=== PATIENT | female | born 1965 | race Caucasian/White ===

== ENCOUNTER 2019-02-14 01:13 | Emergency (ER) | payer BC ==
[2019-02-14 01:27] VITALS: BP 149/93; PULSE 84; RESP 18; TEMP 97.4
[2019-02-14] MEDS ORDERED: Acetaminophen-Codeine 300-30mg TAB PO STA (01:38)
[2019-02-14] MEDS ORDERED: AMOXIC-POT CLAV 875-125MG 1 EACH TAB PO STA (01:38)
[2019-02-14] MEDS ORDERED: FLUTICASONE 50MCG/SPRAY NASAL 16GM EA NOSTRIL STA (01:38)
[2019-02-14] MEDS ORDERED: ACET/COD 300 MG/30 MG STARTER PACK 6 TAB BTL PO STA (01:38)
[2019-02-14] MEDS ORDERED: AMOXIC-POT CLAV 875MG STARTER 2 EACH TABLET PO STA (01:38)
--- NOTE | 2019-02-14 01:41 | ED ---
General Adult HPI - General Chief complaint: ENT Stated complaint: Ear ache Time Seen by Provider: 02/14/19 01:30 EDT Source: patient, RN notes reviewed, old records reviewed Mode of arrival: ambulatory Limitations: no limitations - History of Present Illness Initial comments: 53-year-old female patient with no pertinent past medical history presents to [facility] chief complaint of 3 days of left ear pain. Patient also reports a mild cough. Reports she has felt warm at home, denies any known fevers. Denies abdominal pain chest pain or shortness of breath. Systemic: Pt denies fatigue, fever/chills, rash. Pt denies weakness, night sweats, weight loss. Neuro: Pt denies headache, visual disturbances, syncope or pre-syncope. HEENT: Pt denies ocular discharge or irritation, rhinorrhea, pharyngitis or notable lymphadenopathy. Cardiopulmonary: Pt denies chest pain, SOB, heart palpitations, dyspnea on exertion. Abdominal/GI: Pt denies abdominal pain, n/v/d. : Pt denies dysuria, burning w/ urination, frequency/urgency. Denies new onset urinary or bowel incontinence. MSK: Pt denies myalgia, loss of strength or function in extremities. Neuro: Pt denies new onset weakness, paresthesias. - Related Data Previous Rx's Medication Instructions Recorded Amoxicillin/Potassium Clav 1 each PO Q12HR #20 tab 02/14/19 [Augmentin 875-125 Tablet] Allergies Allergy/AdvReac Type Severity Reaction Status Date / Time levofloxacin [From Levaquin] Allergy Rash/Hives Verified 02/14/19 01:21 EDT Review of Systems ROS Statement: Those systems with pertinent positive or pertinent negative responses have been documented in the HPI. ROS Other: All systems not noted in ROS Statement are negative. Past Medical History Past Medical History: Thyroid Disorder History of Any Multi-Drug Resistant Organisms: None Reported Past Surgical History: Appendectomy, Back Surgery, Orthopedic Surgery Additional Past Surgical History / Comment(s): bilateral knees thumb Past Psychological History: Anxiety Smoking Status: Current every day smoker Past Alcohol Use History: None Reported Past Drug Use History: None Reported General Exam - General Exam Comments Initial Comments: Constitutional: NAD, AOX3, Pt has pleasant affect. HEENT: NC/AT, trachea midline, neck supple, no lymphadenopathy. Posterior pharyn x non erythematous, without exudates. External ears appear normal, without discharge. Right TM pale gaines, no bulging erythema no perforation. Left TM erythematous, bulging with effusion. No perforation. Mucous membranes moist. Eyes PERRLA, EOM intact. There is no scleral icterus. No pallor noted. Cardiopulmonary: RRR, no murmurs, rubs or gallops, no JVD noted. Lungs CTAB in anterior and posterior thurston. No peripheral edema. Abdominal exam: Abdomen soft and non-distended. Abdomen non-tender to palpation in all 4 quadrants. Bowel sounds active in LLQ. No hepatosplenomegaly. No ecchymosis Neuro: CN II-XII grossly intact. No nuchal rigidity. No raccon eyes, no stover sign, no hemotympanum. No cervical spinal tenderness. MSK: No posterior calf tenderness bilaterally, homans sign negative bilaterally. Posterior tibialis and radial pulse +2 bilaterally. Sensation intact in upper and lower extremities. Full active ROM in upper and lower extremities, 5/5 stregnth. Limitations: no limitations Course Vital Signs 02/14/19 01:18 EDT Temperature 97.4 F L Pulse Rate 84 Respiratory 18 Rate Blood Pressure 149/93 O2 Sat by Pulse 100 Oximetry Medical Decision Making - Medical Decision Making 53-year-old female patient presents in ED with chief complaint of left otalgia. Sinus congestion, cough. Patient vital signs are stable, afebrile. Physical symptoms with left otitis media with effusion. Patient declined chest x-ray. Patient was discharged with Flonase, Augmentin. Will follow up with primary care" and will return to ER if condition worsens. Case discussed with Dr. Villalba. Disposition Clinical Impression: Otitis media Disposition: HOME SELF-CARE Condition: Stable Instructions (If sedation given, give patient instructions): Ear Infection (ED) Additional Instructions: Patient to adhere to previously discussed treatment plan and will take medication(s) as directed. Patient to follow up with PCP in 1-2 days. Patient to return to ED if symptoms do not improve. Take medication as directed. Return to ER if condition worsens. Prescriptions: Amoxicillin/Potassium Clav [Augmentin 875-125 Tablet] 1 each PO Q12HR #20 tab Is patient prescribed a controlled substance at d/c from ED?: No Referrals: Melisa Reyes DO [Primary Care Provider] - 1-2 days
== END 2019-02-14 01:58 | disposition home or self-care (01) ==
LOC: EC 01:13
DX: H66.92 Otitis media, unspecified, left ear (principal); R05 Cough; R09.81 Nasal congestion; F17.200 Nicotine dependence, unspecified, uncomplicated; Z88.1 Allergy status to other antibiotic agents; Z53.20 Procedure and treatment not carried out because of patient's decision for unspecified reasons
CPT/HCPCS: 99283

== ENCOUNTER 2019-02-15 21:11 | Emergency (ER) | payer BC ==
[2019-02-15 21:18] VITALS: BP 136/80; PULSE 82; RESP 20; TEMP 97.8
[2019-02-15] MEDS ORDERED: AMOXIC-POT CLAV 875MG STARTER 2 EACH TABLET PO STA (21:55)
[2019-02-15] MEDS ORDERED: KETOROLAC 30 MG/ML 1 ML VIAL IM STA (21:55)
[2019-02-15] MEDS ORDERED: ACET/COD 300 MG/30 MG STARTER PACK 6 TAB BTL PO STA (21:55)
[2019-02-15] MEDS ORDERED: MECLIZINE 12.5 MG TAB PO STA (21:55)
--- NOTE | 2019-02-15 21:57 | ED ---
General Adult HPI - General Chief complaint: ENT Stated complaint: Blood coming out of ear Time Seen by Provider: 02/15/19 21:23 Source: patient Mode of arrival: ambulatory Limitations: no limitations - History of Present Illness Initial comments: 53-year-old female patient presents to the emergency department today for evaluation of left ear pain. Patient was seen and evaluated here 2 days ago and diagnosed with urinary infection. Patient was unable to obtain her antibiotics due to transportation issues. Today she is reporting increased ear pain and bloody purulent drainage. She denies any fever or chills. Denies any difficulty swallowing. Patient denies history of ear infections as an adult. States she has been taking Tylenol codeine for pain and hasn't been helping much. Patient denies any recent rash, shortness breath, chest pain, abdominal pain, nausea, vomiting, diarrhea, constipation, back pain, numbness, tingling, dizziness, weakness, hematuria, dysuria, urinary urgency, urinary frequency, headache, visual changes, or any other complaints. - Related Data Previous Rx's Medication Instructions Recorded Amoxicillin/Potassium Clav 1 each PO Q12HR #20 tab 02/14/19 [Augmentin 875-125 Tablet] Ibuprofen [Motrin] 600 mg PO Q8HR PRN #30 tab 02/15/19 Meclizine HCl 25 mg PO BID #14 tablet 02/15/19 Allergies Allergy/AdvReac Type Severity Reaction Status Date / Time levofloxacin [From Levaquin] Allergy Rash/Hives Verified 02/15/19 21:18 Review of Systems ROS Statement: Those systems with pertinent positive or pertinent negative responses have been documented in the HPI. ROS Other: All systems not noted in ROS Statement are negative. Past Medical History Past Medical History: Thyroid Disorder History of Any Multi-Drug Resistant Organisms: None Reported Past Surgical History: Appendectomy, Back Surgery, Orthopedic Surgery Additional Past Surgical History / Comment(s): bilateral knees thumb Past Psychological History: Anxiety Smoking Status: Current every day smoker Past Alcohol Use History: None Reported Past Drug Use History: None Reported General Exam Limitations: no limitations General appearance: alert, in no apparent distress, other (This is a well- developed, well-nourished adult female patient in no acute distress. Vital signs upon presentation are temperature 97.8F, pulse 82, respirations 20, blood pressure 136/80, pulse ox 99% on room air.) Eye exam: Present: normal appearance, PERRL, EOMI. Absent: scleral icterus, conjunctival injection, periorbital swelling ENT exam: Present: normal oropharynx, mucous membranes moist. Absent: TM's normal bilaterally (Left tympanic membrane is bulging, erythematous, presence of effusion. There is no evidence for tympanic membrane rupture, current bleeding, or current drainage.) Neck exam: Present: normal inspection. Absent: tenderness, meningismus, lymphadenopathy Respiratory exam: Present: normal lung sounds bilaterally. Absent: respiratory distress, wheezes, rales, rhonchi, stridor Cardiovascular Exam: Present: regular rate, normal rhythm, normal heart sounds. Absent: systolic murmur, diastolic murmur, rubs, gallop, clicks Neurological exam: Present: alert, oriented X3, CN II-XII intact Psychiatric exam: Present: normal affect, normal mood Skin exam: Present: warm, dry, intact, normal color. Absent: rash Course Vital Signs 02/15/19 21:14 Temperature 97.8 F Pulse Rate 82 Respiratory 20 Rate Blood Pressure 136/80 O2 Sat by Pulse 99 Oximetry Medical Decision Making - Medical Decision Making 53-year-old female patient presented to the emergency department today for evaluation of left ear pain. Physical examination did reveal a bulging, erythematous left tympanic membrane with no current drainage or evidence for tympanic membrane rupture. Patient will be given a starter pack for Augmentin until she can fill her prescription. She is also given meclizine for complaining of dizziness. She is instructed to follow-up with the ENT specialist for further evaluation as soon as possible. Return parameters were discussed in detail. They verbalize understanding and agree with this plan. Disposition Clinical Impression: Left otitis media Disposition: HOME SELF-CARE Condition: Good Instructions (If sedation given, give patient instructions): Ear Infection (ED) Additional Instructions: Take medication as directed. Complete antibiotic prescription in full. Follow- up with the ears, nose, throat specialist if symptoms are not improved. Return to the emergency department immediately for any new, worsening, or concerning symptoms. Prescriptions: Meclizine HCl 25 mg PO BID #14 tablet Ibuprofen [Motrin] 600 mg PO Q8HR PRN #30 tab PRN Reason: Pain Is patient prescribed a controlled substance at d/c from ED?: No Referrals: Melisa Reyes DO [Primary Care Provider] - 1-2 days [place] MD [STAFF PHYSICIAN] - 1-2 days Time of Disposition: 21:57
== END 2019-02-15 22:36 | disposition home or self-care (01) ==
LOC: EC 21:11
DX: H66.92 Otitis media, unspecified, left ear (principal); F17.200 Nicotine dependence, unspecified, uncomplicated; Z88.1 Allergy status to other antibiotic agents
CPT/HCPCS: 96372; 99282; J1885

== ENCOUNTER 2019-07-27 20:40 | Emergency (ER) | payer BC ==
[2019-07-27 20:44] VITALS: RESP 18
[2019-07-27] MEDS ORDERED: LIDOCAINE 1% INJ 10MG/ML (20 ML MDV) SQ STA (20:53)
--- NOTE | 2019-07-27 21:22 | ED ---
General Adult HPI - General Chief complaint: Wound/Laceration Stated complaint: R Finger Lac Time Seen by Provider: 07/27/19 20:44 Source: patient, RN notes reviewed, old records reviewed Mode of arrival: ambulatory Limitations: no limitations - History of Present Illness Initial comments: 53-year-old female patient with no pertinent past history presents to ED for evaluation of right hand laceration. Patient reports that she attempted to grab a kitchen utensil however instead she grab an exposed knife. She states that her tetanus is up-to-date. She reports that the knife was clean. She denies any other injury. She denies any other complaints. Systemic: Pt denies fatigue, fever/chills, rash. Pt denies weakness, night sweats, weight loss. Neuro: Pt denies headache, visual disturbances, syncope or pre-syncope. HEENT: Pt denies ocular discharge or irritation, otalgia, rhinorrhea, pharyngitis or notable lymphadenopathy. Cardiopulmonary: Pt denies chest pain, SOB, heart palpitations, dyspnea on exertion. Abdominal/GI: Pt denies abdominal pain, n/v/d. : Pt denies dysuria, burning w/ urination, frequency/urgency. Denies new onset urinary or bowel incontinence. MSK: Pt denies myalgia, loss of strength or function in extremities. Neuro: Pt denies new onset weakness, paresthesias. - Related Data Previous Rx's Medication Instructions Recorded Amoxicillin/Potassium Clav 1 each PO Q12HR #20 tab 02/14/19 [Augmentin 875-125 Tablet] Ibuprofen [Motrin] 600 mg PO Q8HR PRN #30 tab 02/15/19 Meclizine HCl 25 mg PO BID #14 tablet 02/15/19 Allergies Allergy/AdvReac Type Severity Reaction Status Date / Time levofloxacin [From Levaquin] Allergy Rash/Hives Verified 07/27/19 20:44 Review of Systems ROS Statement: Those systems with pertinent positive or pertinent negative responses have been documented in the HPI. ROS Other: All systems not noted in ROS Statement are negative. Past Medical History Past Medical History: Thyroid Disorder History of Any Multi-Drug Resistant Organisms: None Reported Past Surgical History: Appendectomy, Back Surgery, Orthopedic Surgery Additional Past Surgical History / Comment(s): bilateral knees thumb Past Psychological History: Anxiety Smoking Status: Current every day smoker Past Alcohol Use History: None Reported Past Drug Use History: None Reported General Exam - General Exam Comments Initial Comments: Constitutional: NAD, AOX3, Pt has pleasant affect. HEENT: NC/AT, trachea midline, neck supple, no lymphadenopathy. Posterior pharynx non erythematous, without exudates. External ears appear normal, without discharge. Mucous membranes moist. Eyes PERRLA, EOM intact. There is no scleral icterus. No pallor noted. Cardiopulmonary: RRR, no murmurs, rubs or gallops, no JVD noted. Lungs CTAB in anterior and posterior thurston. No peripheral edema. Abdominal exam: Abdomen soft and non-distended. Abdomen non-tender to palpation in all 4 quadrants. Bowel sounds active in LLQ. No hepatosplenomegaly. No ecchymosis Neuro: CN II-XII grossly intact. No nuchal rigidity. No raccon eyes, no stover sign, no hemotympanum. No cervical spinal tenderness. MSK: 2 separate lacerations identified. First laceration on third digit proximal to the PIP joint. 2 cm. Vigorously irrigated approximated with 2 simple interrupted sutures. No ligamentous or bony involvement. Full active range of motion of digit. Neurovascularly intact. Approximately 2 simple interrupted sutures. Second laceration distal aspect of fourth digit distal to DIP joint. 2.5 cm laceration. Vigorously irrigated. Full active range of motion of digit. Neurovascularly intact. Approximated with 5 simple interrupted sutures. No ligamentous or bony involvement. Full active ROM in upper and lower extremities, 5/5 stregnth. Limitations: no limitations Course Vital Signs 07/27/19 20:40 Temperature 98.2 F Pulse Rate 83 Respiratory 18 Rate Blood Pressure 154/88 O2 Sat by Pulse 98 Oximetry Procedures - Laceration Laceration #1 Consent Obtained: verbal consent Indication: laceration Site: hand (third digit ) Size (cm): 2 Description: linear Depth: simple, single layer Anesthetic Used: lidocaine 1% Anesthesia Technique: local infiltration Amount (mls): 2 Pre-repair: wound explored, irrigated extensively, deep structures intact Type of Sutures: nylon Size of Sutures: 5-0 Number of Sutures: 2 Technique: simple, interrupted Patient Tolerated Procedure: well, no complications Laceration #2 Consent Obtained: verbal consent Indication: laceration Site: hand (4th digit ) Size (cm): 2 (2.5) Description: linear Depth: simple, single layer Anesthetic Used: lidocaine 1% Anesthesia Technique: local infiltration Amount (mls): 3 Pre-repair: wound explored, irrigated extensively, deep structures intact Type of Sutures: nylon Size of Sutures: 5-0 Number of Sutures: 5 Technique: simple, interrupted Patient Tolerated Procedure: well, no complications Medical Decision Making - Medical Decision Making 53-year-old female patient presents to ED for evaluation of laceration. Patient grabbed an exposed knife which was clean. Tetanus is up-to-date. Patient opens her stable, afebrile. Physical exam 22 lacerations which were irrigated and repaired. Full active range of motion of ligaments is going to. Patient will be discharged will follow up with primary care grandma return to ER if condition worsens. Case discussed with Dr. Sears. Disposition Clinical Impression: Laceration Disposition: HOME SELF-CARE Condition: Stable Instructions (If sedation given, give patient instructions): Laceration (ED), Care For Your Stitches (ED) Additional Instructions: Patient to adhere to previously discussed treatment plan. Patient to follow up with PCP in 1-2 days. Patient to return to ED if symptoms do not improve. Please return for suture removal: Hand: 7-10 days Face: 5 days Chest/abdomen: 12-14 days Extremities: 7-10 days Scalp: 7 days Eyebrow: 5-7 days Foot/sole: 12-14 days Please monitor for signs and symptoms of infection including: redness, warmth, drainage, discharge. Please return to ED if these signs or symptoms occur, new signs or symptoms develop or if condition worsens in anyway. Is patient prescribed a controlled substance at d/c from ED?: No Referrals: Melisa Reyes DO [Primary Care Provider] - 1-2 days
[2019-07-27 21:33] VITALS: BP 145/85; PULSE 81; TEMP 97
== END 2019-07-27 21:31 | disposition home or self-care (01) ==
LOC: EC 20:40
DX: S61.212A Laceration without foreign body of right middle finger without damage to nail, initial encounter (principal); S61.214A Laceration without foreign body of right ring finger without damage to nail, initial encounter; F17.200 Nicotine dependence, unspecified, uncomplicated; Z88.1 Allergy status to other antibiotic agents; W26.0XXA Contact with knife, initial encounter; Y93.G3 Activity, cooking and baking; Y92.000 Kitchen of unspecified non-institutional (private) residence as the place of occurrence of the external cause
CPT/HCPCS: 99283; 12002; J2001